=== PATIENT | female | born 1950 | race Caucasian/White ===

== ENCOUNTER → 2016-09-23 | Outpatient (CLI) | payer MEDICARE, BC ==
--- NOTE | 2016-09-23 09:21 | MM ---
Reason for exam: follow-up at short interval from prior study. Last mammogram was performed 7 months ago. History: Patient is postmenopausal and has history of other cancer at age 47. Family history of premenopausal breast cancer in sister at age 41. MG discontinued stereo core RT of the right breast, March 01, 2016. Took estrogen for 9 years beginning at age 43. Physical Findings: Nurse did not find any significant physical abnormalities on exam. MG 3D Diag Mammo W/Cad RT CC and MLO view(s) were taken of the right breast. Prior study comparison: February 09, 2016, right breast MG 3d work up w/cad RT. January 28, 2016, bilateral MG 3d screening mammo w/cad. The breast tissue is heterogeneously dense. This may lower the sensitivity of mammography. Finding: There are typically benign dystrophic, round calcifications in the right breast. There is no discrete abnormality. These results were verbally communicated with the patient and result sheet given to the patient on 09/23/16. ASSESSMENT: Benign, BI-RAD 2 RECOMMENDATION: Return to routine screening mammogram schedule for both breasts. Back on schedule.
--- NOTE | 2016-09-23 09:21 | USB ---
Reason for exam: follow-up at short interval from prior study. History: Patient is postmenopausal and has history of other cancer at age 47. Family history of premenopausal breast cancer in sister at age 41. MG discontinued stereo core RT of the right breast, March 01, 2016. Took estrogen for 9 years beginning at age 43. US Breast RT Right breast ultrasound including all four quadrants, the retroareolar region and axilla demonstrates no cystic or solid lesion seen. These results were verbally communicated with the patient and result sheet given to the patient on 09/23/16. ASSESSMENT: Negative, BI-RAD 1 RECOMMENDATION: Return to routine screening mammogram schedule for both breasts. Back on schedule.
== END | disposition home or self-care (01) ==
LOC: RADMAMWWP 08:04
PROVIDERS: ATTEND Family Medicine
DX: R92.8 Other abnormal and inconclusive findings on diagnostic imaging of breast (principal)
CPT/HCPCS: 76641; G0206; G0279

== ENCOUNTER → 2017-03-23 | Outpatient (CLI) | payer MEDICARE, BC ==
--- NOTE | 2017-03-27 08:19 | MM ---
Reason for exam: screening (asymptomatic). Last mammogram was performed 6 months ago. History: Patient is postmenopausal and has history of other cancer at age 47. Family history of premenopausal breast cancer in sister at age 41. MG discontinued stereo core RT of the right breast, March 01, 2016. Took estrogen for 9 years beginning at age 43. Physical Findings: A clinical breast exam by your physician is recommended on an annual basis and results should be correlated with mammographic findings. MG 3D Screening Mammo W/Cad Bilateral CC and MLO view(s) were taken. Prior study comparison: September 23, 2016, right breast MG 3d diag mammo w/cad RT. January 28, 2016, bilateral MG 3d screening mammo w/cad. The breast tissue is heterogeneously dense. This may lower the sensitivity of mammography. Finding: There are typically benign boarse, grouped/clustered calcifications in the right breast. No significant changes in finding since September 23, 2016 and January 28, 2016. ASSESSMENT: Benign, BI-RAD 2 RECOMMENDATION: Routine screening mammogram of both breasts in 1 year.
== END | disposition home or self-care (01) ==
LOC: RADMAMWWP 07:39
PROVIDERS: ATTEND Family Medicine
DX: Z12.31 Encounter for screening mammogram for malignant neoplasm of breast (principal); Z80.3 Family history of malignant neoplasm of breast
CPT/HCPCS: 77063; G0202

== ENCOUNTER → 2018-08-22 | Outpatient (CLI) | payer MEDICARE, BC ==
--- NOTE | 2018-08-22 08:36 | CTL ---
EXAMINATION TYPE: CT Low Dose Lung DATE OF EXAM ORDERED: 08/22/2018 HISTORY: Long-term tobacco use. Lung cancer screening CT DLP: 81.[address] CTDI: 2.4 mGy Automated exposure control for dose reduction was used. SCREENING VISIT: Initial study COMPARISON: Chest CT October 08, 2010 TECHNIQUE: Low dose computed tomography scan was performed through the chest at 1 mm thick sections a nd reconstructed images in the coronal plane at [address] DIAGNOSTIC QUALITY: Satisfactory FINDINGS: LUNG NODULES: None. LUNGS: COPD: Severity: Minimal Fibrosis: Severity: Moderate linear scarring right lung base. Mild linear scarring additionally lingu la near diaphragm Lymph nodes: None Other findings: None BILATERAL PLEURAL SPACE: Effusion: None Calcification: None Thickening: None Pneumothorax: None HEART: Heart Size: Normal Coronary calcification: None Pericardial effusion: None OTHER FINDINGS: Upper abdomen: None Bony thorax: Slight S-shaped scoliotic curvature. Supraclavicular region: None Other: Mild calcified plaque of aorta IMPRESSION: No suspicious nodules or masses. FOLLOW UP CT CHEST RECOMMENDATION: Annual low-dose lung screening CT CT LUNG RAD: Lung-Rad 1 Negative
== END ==
LOC: RADCTMAIN 07:53
PROVIDERS: ATTEND Family Medicine
DX: Z12.2 Encounter for screening for malignant neoplasm of respiratory organs (principal); Z87.891 Personal history of nicotine dependence

== ENCOUNTER → 2018-11-27 | Outpatient (CLI) | payer MEDICARE, BC ==
--- NOTE | 2018-11-28 13:58 | MM ---
Reason for exam: screening (asymptomatic). Last mammogram was performed 1 year and 8 months ago. History: Patient is postmenopausal and has history of other cancer at age 47. Family history of premenopausal breast cancer in sister at age 41. MG discontinued stereo core RT of the right breast, March 01, 2016. Took estrogen for 9 years beginning at age 43. Physical Findings: A clinical breast exam by your physician is recommended on an annual basis and results should be correlated with mammographic findings. MG 3D Screening Mammo W/Cad Bilateral CC and MLO view(s) were taken. Prior study comparison: March 23, 2017, bilateral MG 3d screening mammo w/cad. September 23, 2016, right breast MG 3d diag mammo w/cad RT. The breast tissue is heterogeneously dense. This may lower the sensitivity of mammography. Benign calcifications in the right breast. No suspicious abnormality. No significant changes when compared with prior studies. ASSESSMENT: Benign, BI-RAD 2 RECOMMENDATION: Routine screening mammogram of both breasts in 1 year.
== END | disposition home or self-care (01) ==
LOC: RADMAMWWP 07:25
PROVIDERS: ATTEND Family Medicine
DX: Z12.31 Encounter for screening mammogram for malignant neoplasm of breast (principal)
CPT/HCPCS: 77063; 77067

== ENCOUNTER 2019-09-07 11:55 | Observation (INO) | payer MEDICARE, BC ==
[2019-09-07] MEDS ORDERED: IPRATROPIUM 0.5 MG/2.5 ML NEBU INHALATION STA (12:42)
[2019-09-07] MEDS ORDERED: ALBUTEROL NEBULIZED 2.5 MG/3 ML INHALATION STA (12:42)
[2019-09-07] MEDS ORDERED: methylPREDNISolone SOD SUCCI 125 MG/2 ML VIAL IV STA (12:42)
--- NOTE | 2019-09-07 12:49 | ED ---
General Adult HPI - General Chief complaint: Upper Respiratory Infection Stated complaint: Sob/congestion Time Seen by Provider: 09/07/19 12:29 Source: patient, RN notes reviewed, old records reviewed Mode of arrival: ambulatory Limitations: no limitations - History of Present Illness Initial comments: 69-year-old female presenting with 5 days of cough and congestion. She has history of COPD and is a current smoker. She's had a dry cough as well as chills. She's had fever up to 100 at home. She complains of some bilateral rib pain worse with cough. No central chest pain. No lower extremity pain or swelling. She was seen at an urgent care, given albuterol and sent to the emergency department for evaluation. No vomiting or diarrhea. He does complain of nasal congestion. - Related Data Home Medications Medication Instructions Recorded Confirmed Calcium Carbonate/Vitamin D3 1 tab PO DAILY 01/07/15 01/19/15 [Calcium 600 + Vit D Tablet] Gabapentin [Neurontin] 600 mg PO HS 01/07/15 01/19/15 Levothyroxine Sodium [Synthroid] 100 mcg PO DAILY 01/07/15 01/19/15 Lisinopril [Prinivil] 5 mg PO DAILY 01/07/15 01/19/15 HYDROcodone/APAP 10-325MG [[place] 1 tab PO TID PRN 01/19/15 01/19/15 10] Warfarin [Coumadin] 5 mg PO ONCE 01/19/15 01/19/15 Previous Rx's Medication Instructions Recorded Hydrocodone/Acetaminophen [[place] 1 - 2 each PO Q6H PRN #60 tab 01/20/15 10-325] traMADol HCl [Ultram] 50 mg PO Q6H PRN #40 tab 01/20/15 Allergies Allergy/AdvReac Type Severity Reaction Status Date / Time levofloxacin [From Levaquin] Allergy Rash/Hives Verified 09/07/19 14:40 amoxicillin AdvReac Cough Verified 09/07/19 14:40 Review of Systems ROS Statement: Those systems with pertinent positive or pertinent negative responses have been documented in the HPI. ROS Other: All systems not noted in ROS Statement are negative. Past Medical History Past Medical History: Cancer, COPD, Hypertension, Osteoarthritis (OA), Pneumonia, Thyroid Disorder Additional Past Medical History / Comment(s): uses a cane, hx thyroid and skin cancer History of Any Multi-Drug Resistant Organisms: None Reported Past Surgical History: Appendectomy, Hysterectomy, Joint Replacement, Tonsillectomy, Tubal Ligation Additional Past Surgical History / Comment(s): thyroid surgery x 2, steroid inj in hip 09/2014, ANTERIOR TOTAL RIGHT HIP 01/19 Past Anesthesia/Blood Transfusion Reactions: Postoperative Nausea & Vomiting (PONV) Past Psychological History: No Psychological Hx Reported Smoking Status: Former smoker Past Alcohol Use History: Occasional Past Drug Use History: None Reported - Past Family History Sister(s) Family Medical History: Cancer General Exam Limitations: no limitations General appearance: alert, in no apparent distress Head exam: Present: atraumatic, normocephalic Eye exam: Present: normal appearance, PERRL ENT exam: Present: normal exam Neck exam: Present: normal inspection. Absent: tenderness, meningismus Respiratory exam: Present: respiratory distress, wheezes, rhonchi, decreased breath sounds Cardiovascular Exam: Present: regular rate, normal rhythm GI/Abdominal exam: Present: soft. Absent: distended, tenderness, guarding Extremities exam: Present: normal inspection, normal capillary refill. Absent: pedal edema, calf tenderness Neurological exam: Present: alert, oriented X3, CN II-XII intact. Absent: motor sensory deficit Psychiatric exam: Present: normal affect, normal mood Skin exam: Present: warm, dry, intact. Absent: cyanosis, diaphoretic Course Vital Signs 09/07/19 09/07/19 09/07/19 12:23 12:33 12:34 Temperature 99.1 F Pulse Rate 80 75 Respiratory 18 18 20 Rate Blood Pressure 122/70 134/65 O2 Sat by Pulse 94 L 93 L Oximetry 09/07/19 09/07/19 09/07/19 13:13 13:31 13:37 Temperature Pulse Rate 76 88 76 Respiratory 18 Rate Blood Pressure 141/70 O2 Sat by Pulse 93 L Oximetry EKG Findings - EKG Comments: EKG Findings:: EKG: Normal sinus rhythm, low voltage, rate of 75, TX interval 16 0, QRS duration 84, QTC 446, no ST segment elevation. Medical Decision Making - Medical Decision Making 69-year-old female with cough and dyspnea. History of COPD. Wheezing throughout. She has a normal CBC, normal CMP, negative d-dimer, negative troponin, negative BMP. Influenza testing is negative. Chest x-ray negative for acute cardiopulmonary disease. She has persistent dyspnea and wheezing after initial treatment of albuterol, Atrovent and IV steroids. She will be kept for COPD exacerbation. Case is discussed with the admitting physician Dr. Manley. - Lab Data Result diagrams: 09/07/19 12:53 09/07/19 12:53 Lab Results 09/07/19 09/07/19 09/07/19 Range/Units 12:53 12:53 12:53 WBC 5.4 (3.8-10.6) k/uL RBC 4.22 (3.80-5.40) m/uL Hgb 13.6 (11.4-16.0) gm/dL Hct 41.0 (34.0-46.0) % MCV 97.0 (80.0-100.0) fL MCH 32.1 (25.0-35.0) pg MCHC 33.1 (31.0-37.0) g/dL RDW 13.0 (11.5-15.5) % Plt Count 205 (150-450) k/uL Neutrophils % 73 % Lymphocytes % 17 % Monocytes % 5 % Eosinophils % 1 % Basophils % 1 % Neutrophils # 3.9 (1.3-7.7) k/uL Lymphocytes # 0.9 L (1.0-4.8) k/uL Monocytes # 0.3 (0-1.0) k/uL Eosinophils # 0.1 (0-0.7) k/uL Basophils # 0.1 (0-0.2) k/uL PT 10.0 (9.0-12.0) sec INR 1.0 (<1.2) APTT 24.1 (22.0-30.0) sec D-Dimer 0.32 (<0.60) mg/L FEU Sodium 136 L (137-145) mmol/L Potassium 4.2 (3.5-5.1) mmol/L Chloride 105 (98-107) mmol/L Carbon Dioxide 26 (22-30) mmol/L Anion Gap 5 mmol/L BUN 9 (7-17) mg/dL Creatinine 0.62 (0.52-1.04) mg/dL Est GFR (CKD-EPI)AfAm >90 (>60 ml/min/1.73 sqM) Est GFR (CKD-EPI)NonAf >90 (>60 ml/min/1.73 sqM) Glucose 88 (74-99) mg/dL Plasma Lactic Acid Dharmesh (0.7-2.0) mmol/L Calcium 8.1 L (8.4-10.2) mg/dL Magnesium 2.2 (1.6-2.3) mg/dL Total Bilirubin 0.5 (0.2-1.3) mg/dL AST 33 (14-36) U/L ALT 23 (4-34) U/L Alkaline Phosphatase 93 (38-126) U/L Troponin I (0.000-0.034) ng/mL NT-Pro-B Natriuret Pep pg/mL Total Protein 6.5 (6.3-8.2) g/dL Albumin 3.7 (3.5-5.0) g/dL Influenza Type A RNA (Not Detectd) Influenza Type B (PCR) (Not Detectd) 09/07/19 09/07/19 09/07/19 Range/Units 12:53 12:53 12:53 WBC (3.8-10.6) k/uL RBC (3.80-5.40) m/uL Hgb (11.4-16.0) gm/dL Hct (34.0-46.0) % MCV (80.0-100.0) fL MCH (25.0-35.0) pg MCHC (31.0-37.0) g/dL RDW (11.5-15.5) % Plt Count (150-450) k/uL Neutrophils % % Lymphocytes % % Monocytes % % Eosinophils % % Basophils % % Neutrophils # (1.3-7.7) k/uL Lymphocytes # (1.0-4.8) k/uL Monocytes # (0-1.0) k/uL Eosinophils # (0-0.7) k/uL Basophils # (0-0.2) k/uL PT (9.0-12.0) sec INR (<1.2) APTT (22.0-30.0) sec D-Dimer (<0.60) mg/L FEU Sodium (137-145) mmol/L Potassium (3.5-5.1) mmol/L Chloride (98-107) mmol/L Carbon Dioxide (22-30) mmol/L Anion Gap mmol/L BUN (7-17) mg/dL Creatinine (0.52-1.04) mg/dL Est GFR (CKD-EPI)AfAm (>60 ml/min/1.73 sqM) Est GFR (CKD-EPI)NonAf (>60 ml/min/1.73 sqM) Glucose (74-99) mg/dL Plasma Lactic Acid Dharmesh 0.7 (0.7-2.0) mmol/L Calcium (8.4-10.2) mg/dL Magnesium (1.6-2.3) mg/dL Total Bilirubin (0.2-1.3) mg/dL AST (14-36) U/L ALT (4-34) U/L Alkaline Phosphatase (38-126) U/L Troponin I <0.012 (0.000-0.034) ng/mL NT-Pro-B Natriuret Pep 238 pg/mL Total Protein (6.3-8.2) g/dL Albumin (3.5-5.0) g/dL Influenza Type A RNA (Not Detectd) Influenza Type B (PCR) (Not Detectd) 09/07/19 Range/Units 13:00 WBC (3.8-10.6) k/uL RBC (3.80-5.40) m/uL Hgb (11.4-16.0) gm/dL Hct (34.0-46.0) % MCV (80.0-100.0) fL MCH (25.0-35.0) pg MCHC (31.0-37.0) g/dL RDW (11.5-15.5) % Plt Count (150-450) k/uL Neutrophils % % Lymphocytes % % Monocytes % % Eosinophils % % Basophils % % Neutrophils # (1.3-7.7) k/uL Lymphocytes # (1.0-4.8) k/uL Monocytes # (0-1.0) k/uL Eosinophils # (0-0.7) k/uL Basophils # (0-0.2) k/uL PT (9.0-12.0) sec INR (<1.2) APTT (22.0-30.0) sec D-Dimer (<0.60) mg/L FEU Sodium (137-145) mmol/L Potassium (3.5-5.1) mmol/L Chloride (98-107) mmol/L Carbon Dioxide (22-30) mmol/L Anion Gap mmol/L BUN (7-17) mg/dL Creatinine (0.52-1.04) mg/dL Est GFR (CKD-EPI)AfAm (>60 ml/min/1.73 sqM) Est GFR (CKD-EPI)NonAf (>60 ml/min/1.73 sqM) Glucose (74-99) mg/dL Plasma Lactic Acid Dharmesh (0.7-2.0) mmol/L Calcium (8.4-10.2) mg/dL Magnesium (1.6-2.3) mg/dL Total Bilirubin (0.2-1.3) mg/dL AST (14-36) U/L ALT (4-34) U/L Alkaline Phosphatase (38-126) U/L Troponin I (0.000-0.034) ng/mL NT-Pro-B Natriuret Pep pg/mL Total Protein (6.3-8.2) g/dL Albumin (3.5-5.0) g/dL Influenza Type A RNA Not Detected (Not Detectd) Influenza Type B (PCR) Not Detected (Not Detectd) Disposition Clinical Impression: COPD exacerbation Disposition: ADMITTED IP TO THIS [facility] Condition: Stable Is patient prescribed a controlled substance at d/c from ED?: No Referrals: Raiza Olmos DO [Primary Care Provider] - 1-2 days Decision to Admit Reason: Admit from EC Decision Date: 09/07/19 Decision Time: 14:47
[2019-09-07 13:09] LABS: Basophils # (A) 0.1 k/uL (0-0.2); Basophils % (A) 1 %; Eosinophils # (A) 0.1 k/uL (0-0.7); Eosinophils % (A) 1 %; HGB 13.6 gm/dL (11.4-16.0); Lymphocytes # (A) 0.9 k/uL (1.0-4.8); Lymphocytes % (A) 17 %; MCH 32.1 pg (25.0-35.0); MCHC 33.1 g/dL (31.0-37.0); Mean Platelet Volume 7.6; Monocytes # (A) 0.3 k/uL (0-1.0); Monocytes % (A) 5 %; Neutrophils # (A) 3.9 k/uL (1.3-7.7); Neutrophils % (A) 73 %; Platelet Count 205 k/uL (150-450); RBC 4.22 m/uL (3.80-5.40); WBC 5.4 k/uL (3.8-10.6)
[2019-09-07 13:22] LABS: ALT 23 U/L (4-34); AST 33 U/L (14-36); African American GFR (CKD) >90 (>60 ml/min/1.73 sqM); Albumin 3.7 g/dL (3.5-5.0); Alkaline Phosphatase 93 U/L (38-126); Anion Gap 5 mmol/L; Blood Urea Nitrogen 9 mg/dL (7-17); Calcium 8.1 mg/dL (8.4-10.2); Carbon Dioxide 26 mmol/L (22-30); Chloride 105 mmol/L (98-107); Glucose 88 mg/dL (74-99); Magnesium 2.2 mg/dL (1.6-2.3); Non-African American GFR(CKD) >90 (>60 ml/min/1.73 sqM); Potassium 4.2 mmol/L (3.5-5.1); Sodium 136 mmol/L (137-145); Total Bilirubin 0.5 mg/dL (0.2-1.3); Total Protein 6.5 g/dL (6.3-8.2)
[2019-09-07 13:23] LABS: D-Dimer 0.32 mg/L FEU (<0.60); Partial Thromboplastin Time 24.1 sec (22.0-30.0)
--- NOTE | 2019-09-07 14:11 | XR ---
EXAMINATION TYPE: XR chest 2V DATE OF EXAM: 09/07/2019 HISTORY: difficulty breathing. REFERENCE: None. FINDINGS: There is some thickening of the minor fissure on the right. The lungs are otherwise clear. Pleural spaces are clear. The heart is not enlarged. IMPRESSION: NO ACTIVE INTRATHORACIC DISEASE.
[2019-09-07] MEDS ORDERED: IPRATROPIUM-ALBUTEROL 3 ML NEB INHALATION PRN (14:47)
[2019-09-07] MEDS ORDERED: ALBUTEROL NEBULIZED 2.5 MG/3 ML INHALATION PRN (14:48)
[2019-09-07] MEDS ORDERED: [UNRECOGNIZED DRUG - OTHER] PO PRN (15:13)
[2019-09-07] MEDS ORDERED: LORazepam 0.5 MG TAB PO PRN (15:14)
[2019-09-07] MEDS ORDERED: HYDROcodone/APAP 5-325MG 1 EACH TAB PO PRN (15:14)
[2019-09-07] MEDS ORDERED: TEMAZEPAM 15 MG CAP PO PRN (15:14)
[2019-09-07] MEDS: AZITHROMYCIN 500 MG TAB PO SCH (16:25)
[2019-09-07] MEDS ORDERED: ACETAMINOPHEN TAB 500 MG TAB PO PRN (16:31)
[2019-09-07 16:32] LABS: Glucose,Whole Blood 190 mg/dL (75-99)
[2019-09-07] MEDS: IPRATROPIUM-ALBUTEROL 3 ML NEB INHALATION SCH ×2 (16:39→21:01)
[2019-09-07] MEDS: INSULIN ASPART (NovoLOG) 100 UNIT/ML VIAL SQ SCH ×2 (17:04→20:50)
[2019-09-07] MEDS: methylPREDNISolone SOD SUCCI 125 MG/2 ML VIAL IV SCH ×2 (17:04→22:54)
--- NOTE | 2019-09-07 20:06 | HP ---
HISTORY AND PHYSICAL I am covering for Dr. Medellin. CHIEF COMPLAINT: Shortness of breath. HISTORY OF PRESENT ILLNESS: This 69-year-old woman with a past medical history of COPD, history of hypertension, hyperlipidemia, history of DJD, history of pneumonia, history of appendectomy, hysterectomy, being followed by Dr. Raiza Olmos in the outpatient setting complaining of shortness of breath, cough and sputum for the past several days. Because of lack of improvement, patient came to [facility] and was admitted for further evaluation and treatment. The patient had fever up to 100 degrees at home. The patient had some dry cough and some chills also. The influenza testing was negative. A chest x-ray done in the ER which I personally reviewed showed no evidence of an active pneumonia. Patient admitted to the hospital for further evaluation and treatment. PAST MEDICAL HISTORY: History of COPD, history of hypertension, hyperlipidemia, history of DJD, history of nicotine dependence, continued ongoing nicotine dependence. MEDICATIONS: Home medications are reviewed and include: 1. Ultram 50 mg q.h.s. p.r.n. 2. Prinivil 5 mg p.o. daily. 3. Synthroid 88 mcg and 132 mcg on Monday. 4. Annie-Perdido. 5. Calcium with vitamin D. ALLERGIES: LEVAQUIN AND AMOXICILLIN. FAMILY HISTORY: History of cancer and in the family. SOCIAL HISTORY: History of smoking. History of occasional alcohol. REVIEW OF SYSTEMS: ENT: No diminished vision. No diminished hearing. CARDIOVASCULAR: No angina, otherwise, as mentioned earlier. RESPIRATORY: As mentioned earlier. GI no nausea or vomiting. no dysuria. NERVOUS SYSTEM: No numbness or weakness. ALLERGY/IMMUNOLOGY: No asthma or hayfever. MUSCULOSKELETAL as mentioned earlier. HEMATOLOGY/ONCOLOGY: No history of anemia. ENDOCRINE: No history of diabetes or hypothyroidism. CONSTITUTIONAL: As mentioned earlier. DERMATOLOGY: Negative. RHEUMATOLOGY negative. PSYCHIATRY as mentioned earlier. PHYSICAL EXAMINATION: The patient is alert, oriented x3. Pulse is 80. Blood pressure 129/60, respiration 18, temperature 98.9, pulse ox 98% on room air. HEENT is conjunctivae normal. NECK: No JVD. CARDIOVASCULAR: S1, S2 muffled. RESPIRATORY: Breath sounds diminished in the bases. Bilateral scattered rhonchi and crackles. Expiratory wheezing also present. ABDOMEN: Soft, nontender. No mass palpable. LEGS: No edema. No swelling. NERVOUS SYSTEM: Higher functions as mentioned earlier. Moves all 4 limbs. No focal motor or sensory deficits. LYMPHATICS: No lymph nodes palpable in the neck, axillae or groin. SKIN: No ulcer. No rashes. No bleeding. JOINTS: No active deforming arthropathy. LABS: WBC 5.3, hemoglobin 13.6. Sodium 133, potassium 4.2. Influenza negative. ASSESSMENT: 1. Chronic obstructive pulmonary disease acute exacerbation with acute purulent tracheobronchitis. 2. Hyponatremia. 3. Continued ongoing nicotine dependence. 4. Hypertension. 5. Hyperlipidemia. 6. History of degenerative joint disease. 7. History of pneumonia. 8. History of thyroid and skin cancer. 9. History of degenerative joint disease. RECOMMENDATIONS AND DISCUSSION: This 69-year-old woman who presented with multiple medical issues, we will monitor the patient closely, continue the current medications, management and symptomatic treatment. Otherwise, I recommend broad-spectrum IV antibiotics. IV steroids. Monitor blood sugars closely. Intensive bronchodilator treatment. Otherwise, resume the home medications. Prognosis guarded because of multiple complex medical issues. Further recommendations to follow. A copy of this dictation being forwarded to Dr. Raiza Olmos who is the primary physician. MMODL / IJN: [id number] / [id number]
[2019-09-07 20:26] LABS: Glucose,Whole Blood 186 mg/dL (75-99)
[2019-09-07] MEDS: HEPARIN SODIUM,PORCINE 5,000 UNIT/ML 1 ML VIAL SQ SCH (20:51)
[2019-09-07] MEDS ORDERED: traMADol 50 MG TAB PO SCH (21:00)
[2019-09-07] MEDS: SYMBICORT 160-4.5 MCG INHALER INHALATION SCH (21:01)
[2019-09-07 23:26] VITALS: TEMP 98.3
[2019-09-08 05:47] LABS: HCT 41.9 % (34.0-46.0); HGB 13.4 gm/dL (11.4-16.0); MCH 30.6 pg (25.0-35.0); MCV 96.2 fL (80.0-100.0); RBC 4.36 m/uL (3.80-5.40); WBC 5.2 k/uL (3.8-10.6)
[2019-09-08 05:48] LABS: Basophils % (A) 0 %; Eosinophils % (A) 0 %; Lymphocytes # (A) 0.5 k/uL (1.0-4.8); Lymphocytes % (A) 10 %; MCHC 31.8 g/dL (31.0-37.0); Mean Platelet Volume 7.6; Monocytes # (A) 0.1 k/uL (0-1.0); Monocytes % (A) 2 %; Neutrophils # (A) 4.5 k/uL (1.3-7.7); Neutrophils % (A) 87 %; Platelet Count 252 k/uL (150-450); RDW 12.8 % (11.5-15.5)
[2019-09-08 06:02] LABS: African American GFR (CKD) >90 (>60 ml/min/1.73 sqM); Anion Gap 4 mmol/L; Blood Urea Nitrogen 12 mg/dL (7-17); Calcium 8.6 mg/dL (8.4-10.2); Carbon Dioxide 29 mmol/L (22-30); Chloride 105 mmol/L (98-107); Glucose 146 mg/dL (74-99); Non-African American GFR(CKD) >90 (>60 ml/min/1.73 sqM); Potassium 4.6 mmol/L (3.5-5.1); Sodium 138 mmol/L (137-145)
[2019-09-08] MEDS: methylPREDNISolone SOD SUCCI 125 MG/2 ML VIAL IV SCH ×2 (06:09→12:07)
[2019-09-08] MEDS ORDERED: LEVOTHYROXINE 88 MCG TAB PO SCH (06:30)
[2019-09-08 06:53] LABS: Glucose,Whole Blood 153 mg/dL (75-99)
[2019-09-08] MEDS: SYMBICORT 160-4.5 MCG INHALER INHALATION SCH (07:27)
[2019-09-08] MEDS: IPRATROPIUM-ALBUTEROL 3 ML NEB INHALATION SCH ×2 (07:28→11:09)
[2019-09-08] MEDS ORDERED: PANTOPRAZOLE 40 MG TABLET PO SCH (07:30)
[2019-09-08 07:41] VITALS: BP 121/69; RESP 19
[2019-09-08] MEDS: HEPARIN SODIUM,PORCINE 5,000 UNIT/ML 1 ML VIAL SQ SCH (08:35)
[2019-09-08] MEDS: INSULIN ASPART (NovoLOG) 100 UNIT/ML VIAL SQ SCH ×2 (08:36→12:07)
[2019-09-08] MEDS ORDERED: CALCIUM CARB-VIT D 500MG-200UN 1 EACH TAB PO SCH (09:00)
[2019-09-08] MEDS ORDERED: LISINOPRIL 5 MG TAB PO SCH (09:00)
[2019-09-08] MEDS: AZITHROMYCIN 500 MG TAB PO SCH (10:06)
[2019-09-08 11:20] VITALS: PULSE 68
[2019-09-08 11:45] LABS: Glucose,Whole Blood 145 mg/dL (75-99)
[2019-09-08] MEDS ORDERED: MULTIVITAMINS, THERA 1 EACH TAB PO SCH (12:00)
[2019-09-09] MEDS ORDERED: LEVOTHYROXINE 88 MCG TAB PO SCH (06:30)
--- NOTE | 2019-09-09 11:24 | DS ---
DISCHARGE SUMMARY DATE OF SERVICE: 09/08/2019 I am covering for Dr. Medellin. FINAL DIAGNOSES: 1. Chronic obstructive pulmonary disease acute exacerbation with acute purulent tracheobronchitis. 2. Hyponatremia. 3. Continued ongoing nicotine dependence. 4. Hypertension. 5. Hyperlipidemia. 6. History of degenerative joint disease. 7. History of history of pneumonia. 8. History of thyroid and skin cancer. 9. History of degenerative joint disease. DISCHARGE DISPOSITION: The patient will be discharged in stable condition with guarded prognosis. HISTORY OF PRESENT ILLNESS: This is a 69-year-old woman with past medical history of multiple medical problems was admitted with COPD acute exacerbation. Patient was treated with bronchodilators, steroids. Patient improved significantly. Patient is keen on going home. The patient will be discharged in stable condition with guarded prognosis. Further plans to follow up with Dr. Raiza Olmos in the outpatient setting. On exam, vitals are stable. CARDIOVASCULAR: S1, S2. RESPIRATION: A few scattered rhonchi, no crackles. Expiratory wheezing also present. ABDOMEN: Soft, Nontender. DISCHARGE ADVICE: Discharge diet is cardiac diet. Activity limited until followup. Follow up with Dr. Raiza Olmos in 2-3 days. MEDICATIONS WILL BE: 1. Calcium carbonate as before. 2. Prinivil 5 mg p.o. daily. 3. Synthroid 132 mcg p.o. Monday and Synthroid 18 mcg on other days. 4. Ultram 50 mg p.o. q.h.s. 5. Ceftin 500 mg p.o. b.i.d. for 3 days. 6. DuoNeb q.i.d. and p.r.n. 7. Prednisone taper 40 mg daily for 3 days, 30 for 3 days, 20 for 3 days, 10 for 3 days. 8. Symbicort 160/4.5 two puffs b.i.d. 9. Zithromax 500 mg p.o. daily for 5 days. Once again, the patient will be discharged in stable condition with guarded prognosis. MMODL / IJN: [id number] /
== END 2019-09-08 13:28 | disposition home or self-care (01) ==
LOC: EC 11:55 → 1SOBS 14:47
PROVIDERS: ADMIT Hospitalist; ATTEND Hospitalist
DX: J44.1 Chronic obstructive pulmonary disease with (acute) exacerbation (principal); J20.9 Acute bronchitis, unspecified; J44.0 Chronic obstructive pulmonary disease with (acute) lower respiratory infection; E87.1 Hypo-osmolality and hyponatremia; F17.210 Nicotine dependence, cigarettes, uncomplicated; I10 Essential (primary) hypertension; M19.90 Unspecified osteoarthritis, unspecified site; E78.5 Hyperlipidemia, unspecified; Z85.850 Personal history of malignant neoplasm of thyroid; Z85.828 Personal history of other malignant neoplasm of skin; E89.0 Postprocedural hypothyroidism; Z90.710 Acquired absence of both cervix and uterus; Z90.49 Acquired absence of other specified parts of digestive tract; Z90.89 Acquired absence of other organs; Z96.641 Presence of right artificial hip joint; Z79.01 Long term (current) use of anticoagulants; Z79.890 Hormone replacement therapy; Z79.891 Long term (current) use of opiate analgesic; Z79.899 Other long term (current) drug therapy; Z88.0 Allergy status to penicillin; Z88.1 Allergy status to other antibiotic agents
CPT/HCPCS: 96365; 96376 ×2; 96375; 99285; 36415; 94640 ×4; 93005; 85379; 83880; 80053; 80048; 83605; 83735; 84484; 85025 ×2; 85610; 85730; 87040; 87502; 71046; G0378 ×2; J2930 ×2; J0696

== ENCOUNTER → 2019-10-07 | Outpatient (CLI) | payer MEDICARE, BC ==
--- NOTE | 2019-10-07 08:45 | CT ---
EXAMINATION TYPE: CT hip RT wo con DATE OF EXAM: 10/07/2019 COMPARISON: None. HISTORY: Right hip pain x2 weeks. Hip replacement [address] DLP: 438.8 mGycm Automated exposure control for dose reduction was used. FINDINGS: Metallic artifact from total right hip arthroplasty is present. Scar tissue anterolateral aspect seen axial image 37. No suspicious surrounding lucency to suggest loosening or infection. Prosthetic posi tion felt satisfactory. Multiple early well-maintained. No suspicious focal fluid collection or effus ion. No bowel containing hernia. No groin adenopathy. Visualized portion of pelvis felt unremarkable. IMPRESSION: Source of acute/subacute right hip pain not identified.
== END | disposition home or self-care (01) ==
LOC: RADCTMAIN 07:27
PROVIDERS: ATTEND Family Medicine
DX: M25.551 Pain in right hip (principal)

== ENCOUNTER → 2020-01-20 | Outpatient (CLI) | payer MEDICARE, BC ==
--- NOTE | 2020-01-20 12:23 | MR ---
EXAMINATION TYPE: MR lumbar spine wo con DATE OF EXAM: 01/20/2020 COMPARISON: Prior lumbar MRI 09/02/2014 HISTORY: Lumbago with sciatica TECHNIQUE: Multiplanar, multisequence images of the lumbar spine were acquired. L1-L2: Posterior disc bulge causes mild anterior mass effect on the thecal sac. No significant spinal stenosis or foraminal encroachment. L2-L3: Posterior extension of endplate disc complex causes minimal anterior mass effect on the thecal sac. Circumferential extension encroaches on the right neural foramen likely contributed by the scol iotic curvature. L3-L4: Posterior broad-based disc bulge causes mild anterior mass effect on the thecal sac. Facet art hropathy with hypertrophy ligamentum flavum causes posterior lateral mass effect on the thecal sac. N o significant central stenosis, circumferential extension of disc material causes some left-sided for aminal encroachment is mild.. L4-L5: Minimal posterior disc bulge causes anterior mass effect on the thecal sac. No significant spi nal stenosis. Facet arthropathy causes some posterior lateral mass effect on the thecal sac. Circumfe rential extension endplate disc complex encroaches somewhat on the foramina left greater than right. There is a trefoil appearance of the thecal sac. L5-S1: There is facet arthropathy change present. No significant central stenosis or foraminal encroa chment. Minimal posterior disc bulge is seen. Lumbar segments are intact. No paraspinal masses are identified. Conus medullaris has a normal appe arance. Scoliotic curvature is again noted. Loss of height at the L5 vertebral body centrally shows a stable appearance, minimal retropulsion of superior endplate of L5 is stable. There is multilevel sp ondylosis. Loss of disc height signal is greatest at L2-3, there is endplate discogenic marrow signal change. 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 IMPRESSION: Findings are essentially stable compared to prior lumbar MRI. Facet arthropathy, degenerative disc di sease, scoliosis, endplate depression L5
== END | disposition home or self-care (01) ==
LOC: RADMRIMAIN 09:17
PROVIDERS: ATTEND Family Medicine
DX: M51.16 Intervertebral disc disorders with radiculopathy, lumbar region (principal); M46.96 Unspecified inflammatory spondylopathy, lumbar region; M41.9 Scoliosis, unspecified
CPT/HCPCS: 72148

== ENCOUNTER → 2020-02-06 | Outpatient (CLI) | payer MEDICARE, BC ==
--- NOTE | 2020-02-07 08:44 | MM ---
Reason for exam: screening (asymptomatic). Last mammogram was performed 1 year and 2 months ago. History: Patient is postmenopausal and has history of other cancer at age 47. Family history of premenopausal breast cancer in sister at age 41. MG discontinued stereo core RT of the right breast, March 01, 2016. Took estrogen for 9 years beginning at age 43. Physical Findings: A clinical breast exam by your physician is recommended on an annual basis and results should be correlated with mammographic findings. MG 3D Screening Mammo W/Cad Bilateral CC and MLO view(s) were taken. Prior study comparison: November 27, 2018, bilateral MG 3d screening mammo w/cad. March 23, 2017, bilateral MG 3d screening mammo w/cad. The breast tissue is heterogeneously dense. This may lower the sensitivity of mammography. There is chronic nodularity in the left breast. Stable popcorn calcifications central right breast. No significant changes when compared with prior studies. ASSESSMENT: Negative, BI-RAD 1 RECOMMENDATION: Routine screening mammogram of both breasts in 1 year.
== END | disposition home or self-care (01) ==
LOC: RADMAMWWP 07:08
PROVIDERS: ATTEND Family Medicine
DX: Z12.31 Encounter for screening mammogram for malignant neoplasm of breast (principal)
CPT/HCPCS: 77063; 77067

== ENCOUNTER 2020-02-14 09:51 | Emergency (ER) | payer MEDICARE, BC ==
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
[2020-02-14 10:46] VITALS: RESP 18; TEMP 98.4
[2020-02-14 11:04] LABS: Basophils % (A) 0 %; Eosinophils # (A) 0.1 k/uL (0-0.7); Eosinophils % (A) 1 %; HCT 41.7 % (34.0-46.0); HGB 13.4 gm/dL (11.4-16.0); Lymphocytes # (A) 0.8 k/uL (1.0-4.8); Lymphocytes % (A) 9 %; MCH 31.7 pg (25.0-35.0); MCHC 32.1 g/dL (31.0-37.0); MCV 98.7 fL (80.0-100.0); Mean Platelet Volume 7.7; Monocytes # (A) 0.3 k/uL (0-1.0); Monocytes % (A) 3 %; Neutrophils # (A) 7.6 k/uL (1.3-7.7); Neutrophils % (A) 86 %; Platelet Count 303 k/uL (150-450); RBC 4.23 m/uL (3.80-5.40); RDW 12.7 % (11.5-15.5); WBC 8.9 k/uL (3.8-10.6)
--- NOTE | 2020-02-14 11:06 | XR ---
EXAMINATION TYPE: XR chest 2V DATE OF EXAM: 02/14/2020 COMPARISON: 09/07/19 HISTORY: Shortness of breath TECHNIQUE: Frontal and lateral views of the chest are obtained. FINDINGS: Scattered senescent parenchymal changes noted. Hyperinflation compatible with COPD. No evidence for infiltrate. No evidence for atelectasis. Heart size is stable. Mediastinal structures are stable and grossly unremarkable. No evidence for hilar prominence. Degenerative changes dorsal spine. IMPRESSION: 1. No evidence for acute pulmonary disease.
[2020-02-14 11:13] VITALS: PULSE 71
[2020-02-14 11:18] LABS: D-Dimer 0.56 mg/L FEU (<0.60); INR 0.9 (<1.2); Partial Thromboplastin Time 23.4 sec (22.0-30.0); Prothrombin Time 9.7 sec (9.0-12.0)
[2020-02-14 11:22] LABS: ALT 17 U/L (4-34); AST 21 U/L (14-36); African American GFR (CKD) >90 (>60 ml/min/1.73 sqM); Alkaline Phosphatase 101 U/L (38-126); Anion Gap 9 mmol/L; Blood Urea Nitrogen 9 mg/dL (7-17); Calcium 9.2 mg/dL (8.4-10.2); Carbon Dioxide 26 mmol/L (22-30); Chloride 98 mmol/L (98-107); Glucose 219 mg/dL (74-99); Magnesium 1.7 mg/dL (1.6-2.3); Non-African American GFR(CKD) >90 (>60 ml/min/1.73 sqM); Potassium 4.6 mmol/L (3.5-5.1); Sodium 133 mmol/L (137-145); Total Bilirubin 0.5 mg/dL (0.2-1.3); Total Protein 6.5 g/dL (6.3-8.2)
--- NOTE | 2020-02-14 12:19 | CT ---
EXAMINATION TYPE: CT chest angio for PE DATE OF EXAM: 02/14/2020 COMPARISON: 08/22/2018 HISTORY: Back and chest pain CT DLP: 295.7 mGycm Automated exposure control for dose reduction was used. CONTRAST: CT Chest for pulmonary embolism performed with without and with IV Contrast, patient injected with 10 0 ml mL of Isovue 370. FINDINGS: LUNGS: The lungs are grossly clear, there is no concerning parenchymal mass or nodule identified. T here is no pleural effusion or pneumothorax seen. The tracheobronchial tree is patent. Biapical pleu ral thickening. Posterior minimal subsegmental consolidation at the lung bases most typical of atelec tasis. 2 mm subpleural nodule right lower lobe axial image 1042 small to characterize. MEDIASTINUM: There is satisfactory enhancement of the pulmonary artery and its branches, there is no CT evidence for pulmonary embolism. There are no greater than 1 cm hilar or mediastinal lymph nodes. No pericardial effusion is seen. OTHER: Scoliosis with degenerative change of the spine. IMPRESSION: 1. No diagnostic evidence of pulmonary embolism. 2. Minimal subsegmental changes at both lung bases posteriorly. Atelectasis favored over pneumonitis correlate clinically. 3. There is a 2 mm subpleural right lower lobe pulmonary nodule as discussed above. One-year follow-u p CT recommended to confirm stability.
[2020-02-14] MEDS ORDERED: ACET/COD 300 MG/30 MG STARTER PACK 6 TAB BTL PO STA (12:33)
[2020-02-14] MEDS ORDERED: LIDOCAINE 5% PATCH TOPICAL SCH (13:00)
[2020-02-14 13:09] VITALS: BP 150/71
[2020-02-15] MEDS ORDERED: LIDOCAINE 5% PATCH TOPICAL SCH (09:00)
== END 2020-02-14 13:09 | disposition home or self-care (01) ==
LOC: EC 09:51
DX: M54.6 Pain in thoracic spine (principal); R73.09 Other abnormal glucose; E07.9 Disorder of thyroid, unspecified; M19.90 Unspecified osteoarthritis, unspecified site; I10 Essential (primary) hypertension; J44.9 Chronic obstructive pulmonary disease, unspecified; F17.200 Nicotine dependence, unspecified, uncomplicated; Z79.51 Long term (current) use of inhaled steroids; Z79.899 Other long term (current) drug therapy; Z79.890 Hormone replacement therapy; Z88.0 Allergy status to penicillin; Z88.1 Allergy status to other antibiotic agents; Z85.828 Personal history of other malignant neoplasm of skin
CPT/HCPCS: 36415; 93005; 85379; 80053; 83735; 84484; 85025; 85610; 85730; 71046; 71275; 99284; Q9967

== ENCOUNTER 2021-02-13 | Emergency (ER) | payer MEDICARE, BC | END 2021-02-13 14:02 | disposition home or self-care (01) ==

== ENCOUNTER → 2021-02-17 | Outpatient (CLI) | payer MEDICARE, BC ==
--- NOTE | 2021-02-17 11:39 | CTL ---
EXAMINATION TYPE: CT Low Dose Lung DATE OF EXAM ORDERED: 02/17/2021 COMPARISON: 08/22/2018 HISTORY: . Low Dose CT Lung Screening CT DLP: [address] CTDI: 2.41 mGy IV CONTRAST USED: None. SCREENING VISIT: First visit COMPARISON: None. TECHNIQUE: Low dose computed tomography scan was performed through the chest at 1 millimeter thick se ctions and reconstructed images in the coronal plane at [address] DIAGNOSTIC QUALITY: Satisfactory FINDINGS: LUNG NODULES: Not presentLeft lung: no nodules identified.Right lung: no nodules identified. LUNGS: COPD: Severity: Mild Fibrosis: Severity:None Lymph nodes: None Other findings: Basilar linear scarring noted. RIGHT PLEURAL SPACE: Effusion: None Calcification: None Thickening: None Pneumothorax: None LEFT PLEURAL SPACE: Effusion: None Calcification: None Thickening: None Pneumothorax: None HEART: Heart Size: Mildly enlarged Coronary calcification: Mild Pericardial effusion: None OTHER FINDINGS: Upper abdomen: No significant abnormality Bony thorax: Degenerative changes Supraclavicular region: No significant abnormalityOther: No significant abnormalityI IMPRESSION: No concerning nodules or masses. FOLLOW UP CT CHEST RECOMMENDATION: Follow-up screening in one year. Smoking cessation advised. CT LUNG RAD: LUNG RAD CATEGORY 1 negative
== END | disposition home or self-care (01) ==
LOC: RADCTMAIN 11:09
PROVIDERS: ATTEND Family Medicine
DX: Z12.2 Encounter for screening for malignant neoplasm of respiratory organs (principal); F17.210 Nicotine dependence, cigarettes, uncomplicated
CPT/HCPCS: 71271

== ENCOUNTER → 2021-08-25 | Day surgery (SDC) | payer MEDICARE, BC ==
[2021-08-20 15:20] VITALS: BMI 30.1
[~2021-08-25] MED LIST: LACTATED RINGERS 1,000 ML IV ONE; LACTATED RINGERS 1,000 ML IV SCH; LIDOCAINE 1% (10MG/ML) FOR IV START INTRADERMA PRN; LIDOCAINE 1% INJ 10MG/ML (20 ML MDV) ONE; ONDANSETRON 4 MG/2 ML VIAL ONE; PROPOFOL 10 MG/ML 20 ML VIAL IV ONE
--- NOTE | 2021-08-25 14:52 | OP ---
OPERATIVE REPORT DATE OF DICTATION: 08/25/2021 BRIEF HISTORY: The patient is a 71-year-old pleasant white female scheduled for elective colonoscopy as a part of evaluation of prior history of colon polyps. Her last colonoscopy, according to the patient, was 6 years ago, and she was noted to have colon polyps. PROCEDURE PERFORMED: Colonoscopy. PREOPERATIVE DIAGNOSIS: History of colon polyps. ANESTHESIA: IV sedation per Anesthesia. DESCRIPTION OF PROCEDURE: After informed consent was obtained from the patient, she was brought into the endoscopy unit. IV conscious sedation was administered by Anesthesia under continuous monitoring. Initial digital rectal examination was normal. The Olympus CF190 video colonoscope was then inserted into the rectum, gradually advanced into the cecum. Careful examination was performed as the scope was gradually being withdrawn. The ileocecal valve and the appendiceal orifice were visualized and appeared normal. The prep was excellent. Cecum, ascending colon, transverse colon, descending colon, sigmoid colon and rectum appeared normal. In the rectum retroflexion was performed; no lesions were noted. The patient tolerated the procedure well. IMPRESSION: Normal-appearing colon from rectum to cecum with no evidence of colitis or colorectal neoplasia. RECOMMENDATIONS: Findings of this examination were discussed with the patient as well as her family. She was advised to have a repeat colonoscopy 5 years from now because of the prior history of colon polyps. MMODL / IJN: [id number] /
== END ==
LOC: ORWHC2ENDO 08:02
PROVIDERS: ATTEND Internal Medicine Gastroenterology
DX: Z86.010 Personal history of colon polyps (principal)
CPT/HCPCS: G0121; J2405; J2001; J2704

== ENCOUNTER → 2021-09-02 | Outpatient (CLI) | payer MEDICARE, BC ==
--- NOTE | 2021-09-06 09:14 | MM ---
Reason for exam: screening (asymptomatic). Last mammogram was performed 1 year and 7 months ago. History: Patient is postmenopausal and has history of other cancer at age 47. Family history of premenopausal breast cancer in sister at age 41. MG discontinued stereo core RT of the right breast, March 01, 2016. Took estrogen for 9 years beginning at age 43. Physical Findings: A clinical breast exam by your physician is recommended on an annual basis and results should be correlated with mammographic findings. MG 3D Screening Mammo W/Cad Bilateral CC and MLO view(s) were taken. XCCL view(s) were taken of the right breast. Prior study comparison: February 06, 2020, bilateral MG 3d screening mammo w/cad. November 27, 2018, bilateral MG 3d screening mammo w/cad. The breast tissue is heterogeneously dense. This may lower the sensitivity of mammography. Stable grouped course calcifications right breasts. No significant changes when compared with prior studies. ASSESSMENT: Benign, BI-RAD 2 RECOMMENDATION: Routine screening mammogram of both breasts in 1 year.
== END | disposition home or self-care (01) ==
LOC: RADMAMWWP 08:29
PROVIDERS: ATTEND Family Medicine
DX: Z12.31 Encounter for screening mammogram for malignant neoplasm of breast (principal)
CPT/HCPCS: 77063; 77067

== ENCOUNTER → 2022-04-06 | Outpatient (CLI) | payer MEDICARE, BC ==
--- NOTE | 2022-04-06 09:08 | CTL ---
EXAMINATION TYPE: CT Low Dose Lung DATE OF EXAM ORDERED: 04/06/2022 HISTORY: Personal tobacco use. Lung cancer screening CT DLP: 103.[address] CTDI: 3.10 mGy Automated exposure control for dose reduction was used. SCREENING VISIT: Follow-up, subsequent COMPARISON: 02/17/2021 TECHNIQUE: Low dose computed tomography scan was performed through the chest at 1 mm thick sections a nd reconstructed images in the coronal plane at [address] DIAGNOSTIC QUALITY: Satisfactory FINDINGS: LUNG NODULES: None. LUNGS: COPD: Severity: None Fibrosis: Severity: None Lymph nodes: None Other findings: None RIGHT PLEURAL SPACE: Effusion: None Calcification: None Thickening: None Pneumothorax: None LEFT PLEURAL SPACE: Effusion: None Calcification: None Thickening: None Pneumothorax: None HEART: Heart Size: None Coronary calcification: Minimal Pericardial effusion: None OTHER FINDINGS: Upper abdomen: Normal Bony thorax: Normal Supraclavicular region: Normal Other: Ascending thoracic aorta at the level the main pulmonary artery measures 3.2 cm. The main pul monary artery at the bifurcation measures 2.6 cm. IMPRESSION: 1. No suspicious changes to suggest primary or metastatic neoplasm and chest. FOLLOW UP CT CHEST RECOMMENDATION: Low-dose CT chest [address] LUNG RAD: 1
== END | disposition home or self-care (01) ==
LOC: RADCTMAIN 07:54
PROVIDERS: ATTEND Family Medicine
DX: Z12.2 Encounter for screening for malignant neoplasm of respiratory organs (principal); Z87.891 Personal history of nicotine dependence
CPT/HCPCS: 71271

== ENCOUNTER → 2023-03-30 | Outpatient (CLI) | payer MEDICARE, BC ==
--- NOTE | 2023-03-30 09:40 | CTL ---
EXAMINATION TYPE: CT Low Dose Lung DATE OF EXAM ORDERED: 03/30/2023 HISTORY: Z87.891 PERSONAL HISTORY OF NICOTINE DEPENDENCE. Lung cancer screening CT DLP: 82.[address] CTDI: 2.4 mGy Automated exposure control for dose reduction was used. SCREENING VISIT: Follow-up COMPARISON: CT low-dose lung cancer screening 04/06/2022, 02/17/2021, 08/22/2018 TECHNIQUE: Low dose computed tomography scan was performed through the chest at 1 mm thick sections a nd reconstructed images in multiple planes at 1 mm and [address] DIAGNOSTIC QUALITY: Satisfactory FINDINGS: LUNG NODULES: No clinically significant pulmonary nodules. LUNGS: COPD: Severity: None Fibrosis: Severity: None Lymph nodes: None Other findings: None RIGHT PLEURAL SPACE: Effusion: None Calcification: None Thickening: None Pneumothorax: None LEFT PLEURAL SPACE: Effusion: None Calcification: None Thickening: None Pneumothorax: None HEART: Heart Size: Normal Coronary Calcification: Small Pericardial Effusion: None OTHER FINDINGS: Upper abdomen: Small hiatal hernia. Bony thorax: No acute osseous abnormality. Vertebral augmentation changes of the T7 vertebral body. M ultilevel Schmorl's nodes. Supraclavicular region: None Other: None IMPRESSION: No clinically significant pulmonary nodules. CT LUNG RAD AND CT CHEST RECOMMENDATION: Lung-Rad 1 Negative: Continue annual screening with LDCT in 12 months. S Modifier (other clinically significant findings): None
== END | disposition home or self-care (01) ==
LOC: RADCTMAIN 08:35
PROVIDERS: ATTEND Family Medicine
DX: Z12.2 Encounter for screening for malignant neoplasm of respiratory organs (principal); Z87.891 Personal history of nicotine dependence
CPT/HCPCS: 71271

== ENCOUNTER → 2023-05-26 | Outpatient (CLI) | payer MEDICARE, BC ==
--- NOTE | 2023-05-29 01:48 | MM ---
Reason for Exam: Screening (asymptomatic). Last mammogram was performed 1 year(s) and 9 month(s) ago. Patient History: Menarche at age 13. First Full-Term at age 16. Hysterectomy at age 33. Postmenopausal. Other cancer, age 47. Estrogen for 9 years from age 43 until age 52. 03/01/2016, MG discontinued stereo core RT on the right side. Sister had breast cancer, age 41. Risk Values: Yesenia 5 year model risk: 3.3%. NCI Lifetime model risk: 8.4%. Prior Study Comparison: 09/23/2016 Right Diagnostic Mammogram, [facility]. 03/23/2017 Bilateral Screening Mammogram, [facility]. 11/27/2018 Bilateral Screening Mammogram, [facility]. 02/06/2020 Bilateral Screening Mammogram, [facility]. 09/02/2021 Bilateral Screening Mammogram, [facility]. Tissue Density: There are scattered fibroglandular densities. Findings: Analyzed By CAD. Global asymmetry in the upper outer quadrant of the right breast is unchanged. Also unchanged grouped calcifications lower inner quadrant of the right breast. There is no suspicious group of microcalcifications or new suspicious mass in either breast. Overall Assessment: Benign, BI-RAD 2 Management: Screening Mammogram of both breasts in 1 year. See note below in regards to patient's increased five-year Yesenia score. Patient should continue monthly self-breast exams. A clinical breast exam by your physician is recommended on an annual basis. This exam should not preclude additional follow-up of suspicious palpable abnormalities. Note on Yesenia scores and lifetime risk: 1. A Yesenia score greater than 3% is considered moderate risk. If this is the case, consider specialist referral to assess eligibility for a risk reducing agent. 2. If overall lifetime risk for the development of breast cancer is 20% or higher, the patient may qualify for future screening with alternating mammogram and breast MRI. Electronically signed and approved by: Nirmal Steven M.D. Radiologist
== END | disposition home or self-care (01) ==
LOC: RADMAMWWP 07:56
PROVIDERS: ATTEND Family Medicine
DX: Z12.31 Encounter for screening mammogram for malignant neoplasm of breast (principal); Z78.0 Asymptomatic menopausal state; Z80.3 Family history of malignant neoplasm of breast
CPT/HCPCS: 77063; 77067

== ENCOUNTER → 2024-04-01 | Outpatient (CLI) | payer MEDICARE, BC ==
--- NOTE | 2024-04-01 11:24 | CTL ---
EXAMINATION TYPE: CT Low Dose Lung DATE OF EXAM ORDERED: 04/01/2024 HISTORY: . Lung cancer screening CT DLP: 125.[address] CTDI: 3.6 mGy Automated exposure control for dose reduction was used. SCREENING VISIT: COMPARISON: 03/30/2023 TECHNIQUE: Low dose computed tomography scan was performed through the chest at 1 mm thick sections a nd reconstructed images in multiple planes at 1 mm and [address] DIAGNOSTIC QUALITY: Satisfactory FINDINGS: LUNG NODULES: There is a 2 mm subpleural micronodule right upper lobe image 64 series 4. There is a 1 mm subpleural micronodule right lower lobe image 141 series 4 and left upper lobe image 129 series 4 additional 1 mm subpleural nodule left upper lobe image 104 Left apical 2 mm micronodule LUNGS: COPD: Mild: None Fibrosis: Severity: Interlobular septal thickening suspicious for mild interstitial fibrotic changes along the periphery of the lungs. Elevated right hemidiaphragm with right basilar subsegmental atelec tasis. Additional bilateral areas of linear subsegmental consolidation most typical of scarring or at electasis. Lymph nodes: None Other findings: None RIGHT PLEURAL SPACE: Effusion: None Calcification: None. Apical pleural thickening.: None Pneumothora x: None LEFT PLEURAL SPACE: Effusion: None Calcification: None apical pleural thickening. Pneumothorax: None HEART: Heart Size: Normal Coronary Calcification: Mild Small Pericardial Effusion: Trace OTHER FINDINGS: Upper abdomen: Small hiatal hernia. Thickening of the left adrenal gland compatible w ith benign adenoma or mild hyperplasia Bony thorax: No acute osseous abnormality. Vertebral augmentation changes of the T7 vertebral body. M ultilevel Schmorl's nodes. Supraclavicular region: None Other: None IMPRESSION: 1. Multiple bilateral pulmonary micronodules too small to characterize but likely benign and recommen d 12 month follow-up according Fleischner Society guidelines. 2. Mild COPD. 3. Elevated right hemidiaphragm can be associated with phrenic nerve palsy. Adjacent basilar atelecta sis or scarring. CT LUNG RAD AND CT CHEST RECOMMENDATION: Lung-Rad 2 Benign Appearance or Behavior: Continue annual sc reening with LDCT in 12 months.
== END | disposition home or self-care (01) ==
LOC: RADCTMAIN 10:43
PROVIDERS: ATTEND Family Medicine
DX: Z12.2 Encounter for screening for malignant neoplasm of respiratory organs (principal); J44.9 Chronic obstructive pulmonary disease, unspecified; R91.8 Other nonspecific abnormal finding of lung field; J98.6 Disorders of diaphragm; Z87.891 Personal history of nicotine dependence
CPT/HCPCS: 71271

== ENCOUNTER → 2024-06-04 | Outpatient (CLI) | payer MEDICARE, BC ==
--- NOTE | 2024-06-05 11:21 | MM ---
Reason for Exam: Screening (asymptomatic). Last screening mammogram was performed 12 month(s) ago. Patient History: Menarche at age 13. First Full-Term at age 16. Hysterectomy at age 33. Postmenopausal. Other cancer, age 47. Estrogen for 9 years from age 43 until age 52. 03/01/2016, MG discontinued stereo core RT on the right side. Sister had breast cancer, age 41. Risk Values: Yesenia 5 year model risk: 3.3%. NCI Lifetime model risk: 7.9%. Prior Study Comparison: 02/06/2020 Bilateral Screening Mammogram, [facility]. 09/02/2021 Bilateral Screening Mammogram, [facility]. 05/26/2023 Bilateral MG 3D screening mammo w/cad, [facility]. Tissue Density: The breasts are heterogeneously dense, which may obscure small masses. Findings: Analyzed By CAD. Unchanged bilateral asymmetric densities. Unchanged grouped round calcifications on the right. There is no suspicious group of microcalcifications or new suspicious mass in either breast. Overall Assessment: Benign, BI-RAD 2 Management: Screening Mammogram of both breasts in 1 year. See note below in regards to patient's increased 5 year Yesenia score. Patient should continue monthly self-breast exams. A clinical breast exam by your physician is recommended on an annual basis. This exam should not preclude additional follow-up of suspicious palpable abnormalities. Note on Yesenia scores and lifetime risk: 1. A Yesenia score greater than 3% is considered moderate risk. If this is the case, consider specialist referral to assess eligibility for a risk reducing agent. 2. If overall lifetime risk for the development of breast cancer is 20% or higher, the patient may qualify for future screening with alternating mammogram and breast MRI. [facility], , 06/05/2024 11:17 AM. Electronically signed and approved by: Nirmal Steven M.D. Radiologist
== END | disposition home or self-care (01) ==
LOC: RADMAMWWP 08:22
PROVIDERS: ATTEND Family Medicine
CPT/HCPCS: 77063; 77067

== ENCOUNTER → 2025-01-23 | Outpatient (CLI) | payer MEDICARE, BC ==
[~2025-01-23] MED LIST changes: -LACTATED RINGERS 1,000 ML IV ONE; -LACTATED RINGERS 1,000 ML IV SCH; -LIDOCAINE 1% (10MG/ML) FOR IV START INTRADERMA PRN; -LIDOCAINE 1% INJ 10MG/ML (20 ML MDV) ONE; -ONDANSETRON 4 MG/2 ML VIAL ONE; -PROPOFOL 10 MG/ML 20 ML VIAL IV ONE; +REGADENOSON 0.4 MG/5 ML SYRINGE IV PRN
--- NOTE | 2025-01-23 11:25 | NM ---
EXAMINATION TYPE: NM stress lexiscan cardiolite DATE OF EXAM: 01/23/2025 COMPARISON: NONE CLINICAL INDICATION: Female, 74 years old with history of R00.2 PALPITATIONS, TECHNIQUE: After the intravenous administration of 9.9 mCi Tc 99m Sestamibi - Cardiolite resting SPE CT images acquired 45 minutes post injection. At peak stress 25.2 mCi Tc 99m Sestamibi - Stress images obtained 30 minutes post injection The patient was stressed with 0.4mg Lexiscan. FINDINGS: No fixed defects are evident. No reversible stress defects on Spect images. Wall motion is normal. Ejection fraction is calculated to be 79 %. IMPRESSION: 1. No stress-induced ischemic changes [facility], , 01/23/2025 11:22 AM
--- NOTE | 2025-01-23 13:37 | CA ---
Lexiscan Nuclear Stress Test Report Name: Ioana Laws Exam Date: 01/23/2025 09:33 Exam Location: [facility] Ht (in): 63 Wt (lb): 190 BSA: 1.89 Ordering Phys: Roland Medellin MD Referring Phys: MARCELINA Technologist: LIANNA TOMAS Age: 74 Gender: F : 1950 Procedure CPT: Indications: R00.2 palpitations ICD-10 Codes: Patient History: ALPHONSE, PALP, HTN, HIGH CHOL, CATH, COPD, FAMILY HX, QUIT TOB 2 YEARS AGO. Medications: Meds past 24 hrs: Pretest Chest Pain: STRESS TEST Lexiscan Protocol Exercise Duration (min:sec): 02:[address] Depressions (mm): Angina Score: Mckenzie Score: Resting HR (bpm): 63 Peak HR (bpm): 84 Resting BP (mmHg): 131 / 63 Peak BP (mmHg): 175 / 56 MPHR: 146 Target HR: 124 % MPHR: 58 METS: 1.0 Total Dose: Peak Dose: Atropine: Double Product: 00260 BP Response: Stress Termination: INFUSION COMPLETE Stress Symptoms: NO SYMPTOMS Stress Summary: ECG ANALYSIS Resting ECG: Sinus rhythm. Normal conduction. No arrhythmias. Normal repolarization. Stress ECG: No ECG changes from baseline with Lexiscan infusion. CONCLUSIONS No ECG evidence of ischemia with Lexiscan infusion. Nuclear test results to follow. Dr. Chan Pride MD (Electronically Signed) Final Date: 23 January 2025 13:36
== END | disposition home or self-care (01) ==
LOC: RADNMMAIN 08:04
PROVIDERS: ATTEND Family Medicine
DX: R00.2 Palpitations (principal); I10 Essential (primary) hypertension; J44.9 Chronic obstructive pulmonary disease, unspecified; E78.00 Pure hypercholesterolemia, unspecified
CPT/HCPCS: 93017; 78452; A9500; J2785